=== PATIENT | female | born 1945 | race Caucasian/White ===

== ENCOUNTER 2021-08-30 08:50 | Outpatient (RCR) | payer MEDICARE, SELFPAY ==
--- NOTE | 2021-08-30 10:21 | PTOPEVAL ---
PHYSICAL THERAPY EVALUATION AND PLAN OF CARE 08-30-21 Thank you for referring Hawa Hubbard to [facility] for vestibular rehab. Her symptoms have resolved and were not able to reproduce any vestibular s/s. Education was completed and she is to call if there are any further questions or if additional treatment is needed. Her plan of treatment is 0-2?x/week for 4 weeks. Please review, sign, date and return this plan of care [email or web address]. I agree with and certify that the following plan of care is medically necessary. 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 Cardiovascular History Hx Valve Replacement Yes: mitral valve repair Respiratory History Hx Respiratory Disorders No Significant History Gastrointestinal History Hx Gastrointestinal Disorders No Significant History Musculoskeletal History Hx Arthritis Yes: hands Hx Orthopedic Surgery Yes: L ankle ORIF;L humerus ORIF- both from falls Endocrine History Hx Endocrine Disorders No Significant History HEENT History Hx Sinus Problems Yes: seasonal allergies Evaluation Information Problem Diagnosis vestibular therapy Onset Apr 2021 Prior Level of Function Activity Level (Last 3 Months) Occupation artist Hand Dominance Right Activity of Daily Living Ability Independent Indoor/Home Mobility Independent Community Mobility Independent Stairs Ability Independent Functional Cognition (Planning, Shopping Independent , Taking Medications) Cooking Yes Cleaning Yes Laundry Yes Shopping Yes Driving Yes Home Setting Home Type House Living Situation With Spouse Mobility Assistive Devices (Used Last 3 None,Walker, Wheeled Months) Comments Additional Prior Level of Function due to dizziness, and fear of Comments falling again-- do not get up on the ladder to dust high areas of home and put things up higher in cabinet; is active, walks her dog outside ~ 30 min; indep with home and self care; has been driving Pain Assessment Self Report Self Report Pain Level 0 Pain Score Pain Score 0: Self Report Additional Pain Score Comments no neck pain, but has p
--- NOTE | 2021-09-22 08:50 | PCPTNOTE ---
PHYSICAL THERAPY DISCHARGE 09-22-21 Attending Provider: Keith Roman MD Patient:Hawa Hubbard Date of :1945 Mrs. Hubbard has not returned for any further treatments since the PT evaluation on 08/30/2021, therefore she will be discharged at this time. At the evaluation, her vestibular symptoms were almost resolved. Education was provided and she was to call if there were any further treatment needed. Thank you for referring Hawa to [facility]. Please review, sign, date and return this discharge summary [email or web address]. I have been updated about the patient's current status and I agree with discharge from the above service at this time. Referring Physician Date
== END 2021-09-22 10:39 | disposition home or self-care (01) ==
LOC: ANHPT 08:50
PROVIDERS: Referring Provider Otolaryngology; Visit Provider Otolaryngology
DX: H81.10 Benign paroxysmal vertigo, unspecified ear (principal)
CPT/HCPCS: 97161